=== PATIENT | female | born 1980 | race Caucasian/White ===

== ENCOUNTER 2022-07-31 15:28 | Emergency (ER) | payer MEDICAID, OTHER ==
[~2022-07-31] VITALS: Ht 157.5 cm; Wt 68.8 kg
[2022-07-31 15:58] VITALS: BP 151/94
[2022-07-31] MEDS ORDERED: cefTRIAXone SOD 1,000 MG VL IM ONE (17:30)
[2022-07-31] MEDS ORDERED: [UNRECOGNIZED DRUG - CODE] IM (17:40)
[2022-07-31] MEDS ORDERED: METH4PAK PO (17:40)
[2022-07-31] MEDS ORDERED: DOXY-338 PO (17:40)
[2022-07-31 18:29] LABS: Urine Bacteria NONE SEEN /hpf (None Seen); Urine Blood Negative /uL (Negative); Urine Mucus FEW (None Seen); Urine Specific Gravity 1.032 (1.001-1.035); Urine WBC 38 /hpf (0 - 5)
== END 2022-07-31 17:50 | disposition home or self-care (01) ==
LOC: ER 15:28
DX: Z20.2 Contact with and (suspected) exposure to infections with a predominantly sexual mode of transmission (principal); R21 Rash and other nonspecific skin eruption; F17.210 Nicotine dependence, cigarettes, uncomplicated; Z79.2 Long term (current) use of antibiotics; Z79.899 Other long term (current) drug therapy
CPT/HCPCS: 81001; 86592; 87491; 87591; 96372; 99283; J0696

== ENCOUNTER 2022-12-07 09:16 | Emergency (ER) | payer OTHER ==
[~2022-12-07] VITALS: Ht 160 cm; Wt 68.0 kg
[~2022-12-07 09:16] MED LIST: DOXY-447 PO; METH4PAK PO; [UNRECOGNIZED DRUG - CODE] IM
[2022-12-07 09:28] VITALS: BP 138/74
[2022-12-07] MEDS ORDERED: KETOROLAC TROMETH 30 MG/ML 1ML VIAL IV ONE (09:30)
[2022-12-07] MEDS ORDERED: SODIUM CHLORIDE 0.9% 1,000 ML IVB ONE (09:30)
[2022-12-07] MEDS ORDERED: ONDANSETRON HCL 4 MG/2 ML VIAL IV ONE (09:30)
[2022-12-07 09:53] LABS: Urine Bacteria NONE SEEN /hpf (None Seen); Urine Blood 1+ /uL (Negative); Urine Hyaline Cast MANY /lpf (0 - 2); Urine Mucus FEW (None Seen); Urine WBC 549 /hpf (0 - 5)
[2022-12-07 10:09] LABS: Alcohol, Urine < 3.0 mg/dL (0-10); Amphetamine Screen, Urine POSITIVE (NEGATIVE); Barbiturate Scree,Urine NEGATIVE (NEGATIVE); Benzodiazephine Screen, Urine NEGATIVE (NEGATIVE); Cannabinoid Screen, Urine NEGATIVE (NEGATIVE); Cocaine Screen, Urine POSITIVE (NEGATIVE); Phencyclidine Screen, Urine NEGATIVE (NEGATIVE)
[2022-12-07 10:16] LABS: Opiate Scree,Urine NEGATIVE (NEGATIVE)
== END 2022-12-07 10:59 | disposition left against medical advice (07) ==
LOC: EDBD 09:16 → ER 09:16
DX: K56.1 Intussusception (principal); F17.210 Nicotine dependence, cigarettes, uncomplicated; I10 Essential (primary) hypertension; Z88.6 Allergy status to analgesic agent; Z79.899 Other long term (current) drug therapy
CPT/HCPCS: 74176; 80307; 81001

== ENCOUNTER → 2022-12-08 | Emergency (ER) | payer OTHER ==
[~2022-12-08] VITALS: Ht 160 cm; Wt 67.0 kg
[~2022-12-08] MED LIST changes: +LISI20TA56 PO
[2022-12-08 12:13] VITALS: BP 145/89
== END | disposition left against medical advice (07) ==
LOC: ER 11:47
DX: R10.9 Unspecified abdominal pain (principal); Z53.21 Procedure and treatment not carried out due to patient leaving prior to being seen by health care provider

== ENCOUNTER 2022-12-09 08:50 | Inpatient (IN) | payer OTHER ==
[~2022-12-09] VITALS: Ht 160 cm; Wt 67.8 kg
[~2022-12-09 08:50] MED LIST changes: -LISI20TA56 PO
[2022-12-09 12:51] LABS: Urine Bacteria NONE SEEN /hpf (None Seen); Urine Blood TRACE /uL (Negative); Urine Mucus MODERATE (None Seen); Urine Specific Gravity 1.022 (1.001-1.035); Urine WBC 714 /hpf (0 - 5)
[2022-12-09] MEDS ORDERED: PANTOPRAZOLE 40 MG/10 ML VIAL INJ IV ONE (14:45)
[2022-12-09] MEDS ORDERED: cefTRIAXone 1GM/50ML D5W 50 ML IV ONE (14:45)
[2022-12-09 14:56] LABS: Basophils # (auto) 0.1 10 ^3/uL (0-0.2); Basophils % (auto) 1.1 % (0.0-2.0); Eosinophils # (auto) 0.4 10 ^3/uL (0-0.8); Eosinophils % (auto) 4.5 % (0.0-7.0); Hematocrit 43.1 % (36.0-46.0); Hemoglobin 14.7 g/dL (12.2-16.2); Lymphocytes # (auto) 2.2 10 ^3/uL (0.4-5.4); Lymphocytes % (auto) 27.5 % (10.0-50.0); Mean Corpuscular Hemoglobin 30.4 pg (28.0-32.0); Mean Corpuscular Volume 89.5 fL (80.0-100.0); Monocytes # (auto) 0.6 10 ^3/uL (0-1.3); Monocytes % (auto) 7.4 % (0.0-12.0); Neutrophils # (auto) 4.8 10 ^3/uL (1.6-8.6); Neutrophils % (auto) 59.5 % (37.0-80.0); Nucleated Red Blood Cells % 0.1 %; Red Blood Cells 4.82 10^6/uL (4.0-5.20); Red Cell Distribution Width 14.5 % (11.8-14.3)
[2022-12-09 15:18] LABS: INR 0.96 (0.9-1.15)
[2022-12-09 15:30] LABS: BUN/Creatinine Ratio 14.1 (10.0-20.0); Potassium 3.6 mmol/L (3.5-5.1)
[2022-12-09 15:32] LABS: Bilirubin, Total 0.2 mg/dL (0.2-1.0); Total Protein 7.9 g/dL (6.4-8.2)
[2022-12-09] MEDS: SODIUM CHLORIDE 0.9% 1,000 ML IV SCH ×2 (15:41→22:58)
[2022-12-09] MEDS: MORPHINE SULFATE INJ 2 MG/ml SYRG IV PRN ×2 (15:42→20:49)
[2022-12-09] MEDS ORDERED: GASTROGRAFIN 120 ML SOL ONE (15:56)
[2022-12-10] MEDS: MORPHINE SULFATE INJ 2 MG/ml SYRG IV PRN ×2 (01:46→10:09)
[2022-12-10] MEDS ORDERED: cefTRIAXone 1GM/50ML D5W 50 ML IV SCH (09:00)
[2022-12-10 09:15] VITALS: BP 148/87
[2022-12-10] MEDS ORDERED: LISI20TA56 PO (09:46)
[2022-12-10 09:47] VITALS: BP 148/87
[2022-12-10] MEDS: SODIUM CHLORIDE 0.9% 1,000 ML IV SCH (10:00)
[2022-12-10] MEDS ORDERED: PANTOPRAZOLE 40 MG/10 ML VIAL INJ IV SCH (10:00)
[2022-12-10 10:39] VITALS: BP 148/87
== END 2022-12-10 19:00 | disposition left against medical advice (07) | DRG 247 ==
LOC: ER 08:50 → TELE 14:31 → EAST 12-10 09:09
PROVIDERS: ADMIT Nurse Practitioner Family; ATTEND Nurse Practitioner Acute Care
DX: K56.1 Intussusception (principal); A53.9 Syphilis, unspecified; I10 Essential (primary) hypertension; N30.00 Acute cystitis without hematuria; Z53.29 Procedure and treatment not carried out because of patient's decision for other reasons; F17.210 Nicotine dependence, cigarettes, uncomplicated; K80.20 Calculus of gallbladder without cholecystitis without obstruction; F41.9 Anxiety disorder, unspecified; K56.609 Unspecified intestinal obstruction, unspecified as to partial versus complete obstruction
CPT/HCPCS: 36415; 71045; 74250; 80053; 81001; 82378; 83690; 85025; 85610; 87086; 96365; 96366; 96375; C9113; G0378; J0696

== ENCOUNTER 2023-04-08 12:31 | Emergency (ER) | payer MEDICAID, OTHER ==
[~2023-04-08] VITALS: Ht 160 cm; Wt 66.4 kg
[~2023-04-08 12:31] MED LIST changes: +LISI20TA56 PO
[2023-04-08 12:43] VITALS: BP 177/125; PULSE 109; RESP 18; O2SAT 98
[2023-04-08 15:36] LABS: Urine Bacteria FEW /hpf (None Seen); Urine Blood 1+ /uL (Negative); Urine Clarity HAZY (Clear); Urine Color Yellow (Yellow); Urine Mucus FEW (None Seen); Urine Protein, UAD 1+ (Negative); Urine Specific Gravity 1.026 (1.001-1.035); Urine WBC 216 /hpf (0 - 5)
[2023-04-08 15:47] LABS: Amphetamine Screen, Urine Pos (NEGATIVE); Barbiturate Scree,Urine Neg (NEGATIVE); Benzodiazephine Screen, Urine Neg (NEGATIVE); Cannabinoid Screen, Urine Neg (NEGATIVE); Cocaine Screen, Urine Pos (NEGATIVE); Opiate Scree,Urine Neg (NEGATIVE); Phencyclidine Screen, Urine Neg (NEGATIVE)
== END 2023-04-08 20:14 | disposition left against medical advice (07) ==
LOC: ER 12:31
DX: R10.9 Unspecified abdominal pain (principal); Z53.21 Procedure and treatment not carried out due to patient leaving prior to being seen by health care provider
CPT/HCPCS: 80307; 81001